=== PATIENT | female | born 1975 | race Caucasian/White ===

== ENCOUNTER → 2023-06-22 15:01 | Outpatient (CLI) | payer BC, SELFPAY ==
--- NOTE | ~2023-06-22 | US_ITS ---
EXAMINATION: US pelvic complete w TV DATE: 06/22/2023 15:22 INDICATION: Menorrhagia Comparison:No prior studies for comparison. TECHNIQUE: Multiple transabdominal and endovaginal sonographic images of the pelvis performed. FINDINGS: The uterus measures 8.1 x 4.1 x 4.4 cm. The endometrial complex measures 4.1 mm. The right ovary measures 1.7 x 1.7 x 1.5 cm and the left ovary measures 2.2 x 1.8 x 1.8 cm. There ar e small follicles in each ovary. Normal doppler signal in both ovaries. There is no free fluid in the pelvis. There are no abnormal masses seen on either side. IMPRESSION: 1. Unremarkable pelvic ultrasound. Reviewed, dictated and finalized at location L. [employer] [employer]
== END ==
PROVIDERS: PCP Obstetrics & Gynecology; Visit Provider Obstetrics & Gynecology
DX: N93.9 Abnormal uterine and vaginal bleeding, unspecified (principal)
CPT/HCPCS: 76830; 76856